=== PATIENT | female | born 1960 | race American Indian/Alaskan Native ===

== ENCOUNTER 2017-05-25 08:39 | Outpatient (CLI) | payer BC ==
--- NOTE | 2017-05-25 11:02 | Mammography Report ---
BILATERAL DIGITAL SCREENING MAMMOGRAM with CAD: 05/25/17 08:39:00 CLINICAL: Routine screening.History of breast cancer in her mother at 89 years of age. Previous right benign biopsy. COMPARISON:05/07/16 FINDINGS: There are scattered areas of fibroglandular density.Right upper outer biopsy clip. No mass, architectural distortion or suspicious calcifications. IMPRESSION: No mammographic evidence of malignancy. BI-RADS CATEGORY: 2 -- Benign RECOMMENDATION: Routine mammographic screening in one year. COMMENT: Patient follow-up letters are generated by our [employer] application.
== END 2017-05-25 08:40 | disposition home or self-care (01) ==
LOC: MAMMO 08:39
PROVIDERS: ATTEND Internal Medicine
DX: Z12.31 Encounter for screening mammogram for malignant neoplasm of breast (principal); Z80.3 Family history of malignant neoplasm of breast
CPT/HCPCS: 77067; G0202

== ENCOUNTER 2018-06-03 10:06 | Outpatient (CLI) | payer BC ==
--- NOTE | 2018-06-03 15:18 | Mammography Report ---
BILATERAL DIGITAL SCREENING MAMMOGRAM with CAD: 06/03/18 10:06:00 CLINICAL: Routine screening.History of breast cancer in her mother in her 90s. COMPARISON:05/25/17 FINDINGS: There are scattered areas of fibroglandular density.A right upper outer biopsy clip. No new mass, architectural distortion or suspicious calcifications. IMPRESSION: No mammographic evidence of malignancy. BI-RADS CATEGORY: 2 -- Benign RECOMMENDATION: Routine mammographic screening in one year. COMMENT: Patient follow-up letters are generated by our [employer] application.
== END 2018-06-03 10:07 | disposition home or self-care (01) ==
LOC: MAMMO 10:06
PROVIDERS: ATTEND Internal Medicine
DX: Z12.31 Encounter for screening mammogram for malignant neoplasm of breast (principal)
CPT/HCPCS: 77067

== ENCOUNTER 2019-06-24 10:42 | Outpatient (CLI) | payer BC ==
--- NOTE | 2019-06-27 10:46 | Mammography Report ---
DIGITAL SCREENING MAMMOGRAM WITH CAD, 06/24/2019 INDICATION: Routine screening mammography. TECHNIQUE: Digital bilateral 2D mammography was obtained in the craniocaudal and mediolateral obliq ue projections. This examination was interpreted with the benefit of Computer-Aided Detection analysi s. COMPARISON: 06/03/2018 and annual mammograms going back to 04/25/2015 FINDINGS: Breast Density: There are scattered areas of fibroglandular density. There is no evidence of dominant mass, suspicious calcifications or architectural distortion in the l eft breast. A right upper parenchymal asymmetry on the MLO view requires additional imaging. A right outer biopsy clip with a stable density at the clip. IMPRESSION: Right asymmetry requiring additional imaging. Recommend recall for right lateral, exagger ated CC and spot compression MLO views and right breast ultrasound if needed. Follow up recommendation: Special View: Spot Category 0: Incomplete. Needs additional imaging evaluation and/or prior mammograms for comparison. A "normal" or negative report should not discourage follow up or biopsy of a clinically significant f inding. A written summary of these findings will be mailed to the patient. The patient will be entered into a mammography reporting system which will generate a reminder letter for the patient's next appointmen t at the appropriate interval. The [employer] recommends yearly mammograms starting at age 40 and continuing as l mariam as a woman is in good health. Breast MRI is recommended for women with an approximate 20-25% or greater lifetime risk of breast cancer, including women with a strong family history of breast or ova yovany cancer or who have been treated for Hodgkin's disease. Signer Name: Matt Frank MD Signed: 06/27/2019 10:41 AM Workstation Name: [id number]
== END 2019-06-24 10:43 | disposition home or self-care (01) ==
LOC: MAMMO 10:42
PROVIDERS: ATTEND Internal Medicine
DX: Z12.31 Encounter for screening mammogram for malignant neoplasm of breast (principal)
CPT/HCPCS: 77067

== ENCOUNTER 2019-07-06 10:44 | Outpatient (CLI) | payer BC ==
--- NOTE | 2019-07-06 15:08 | Mammography Report ---
DIGITAL DIAGNOSTIC MAMMOGRAM WITH CAD, -- 07/06/2019 INDICATION: Recalled to evaluate asymmetry at screening mammogram. TECHNIQUE: Digital right mammographic imaging was performed. Spot compression views were obtained. This examination was interpreted with the benefit of Computer-aided Detection analysis. COMPARISON: 06/24/2019 FINDINGS: Breast Density: The breast is heterogeneously dense, which may obscure small masses. Additional right mammographic views were performed and are negative. Satisfactory effacement of asymm etry on spot images. IMPRESSION: No mammographic evidence of malignancy. Follow up recommendation: Routine yearly BI-RADS Category 2: Benign. A "normal" or negative report should not discourage follow up or biopsy of a clinically significant f inding. A written summary of these findings will be mailed to the patient. The patient will be entered into a mammography reporting system which will generate a reminder letter for the patient's next appointmen t at the appropriate interval. According to the [employer], yearly mammograms are recommended starting at age 40 and continuing as long as a woman is in good health. Breast MRI is recommended for women with an venkat roximately 20-25% or greater lifetime risk of breast cancer, including women with a strong family his tory of breast or ovarian cancer and women who have been treated for Hodgkin's disease. Signer Name: Matt Frank MD Signed: 07/06/2019 3:04 PM Workstation Name: [id number]
== END 2019-07-06 10:45 | disposition home or self-care (01) ==
LOC: MAMMO 10:44
PROVIDERS: ATTEND Internal Medicine
DX: R92.8 Other abnormal and inconclusive findings on diagnostic imaging of breast (principal)

== ENCOUNTER 2020-08-03 10:56 | Outpatient (CLI) | payer BC ==
--- NOTE | 2020-08-03 16:55 | Mammography Report ---
DIGITAL SCREENING MAMMOGRAM WITH CAD, 08/03/2020 CLINICAL INFORMATION / INDICATION: Routine screening mammography. TECHNIQUE: Digital bilateral 2D mammography was obtained in the craniocaudal and mediolateral obliqu e projections. This examination was interpreted with the benefit of Computer-Aided Detection analysis . COMPARISON: 06/24/2019 FINDINGS: Breast Density: The breasts are heterogeneously dense, which may obscure small masses. Right biopsy changes are again seen. In the upper outer right breast, posterior depth, approximately 7 8 cm from the nipple, a new rounded 12 mm density is seen. In the upper outer quadrant of the left breast, mid depth, approximately 7 cm from the nipple, a new 8 mm density is seen. IMPRESSION: Bilateral new focal asymmetric densities Follow up recommendation: Bilateral breast ultrasound BI-RADS Category 0: Incomplete. Needs additional imaging evaluation and/or prior mammograms for anel martines. A "normal" or negative report should not discourage follow up or biopsy of a clinically significant f inding. A written summary of these findings will be mailed to the patient. The patient will be entered into a mammography reporting system which will generate a reminder letter for the patient's next appointmen t at the appropriate interval. The [employer] recommends yearly mammograms starting at age 40 and continuing as l mariam as a woman is in good health. Breast MRI is recommended for women with an approximate 20-25% or greater lifetime risk of breast cancer, including women with a strong family history of breast or ova yovany cancer or who have been treated for Hodgkin's disease. Signer Name: Dalton Foley MD Signed: 08/03/2020 4:50 PM Workstation Name: [id number]
== END 2020-08-03 10:57 | disposition home or self-care (01) ==
LOC: MAMMO 10:56
PROVIDERS: ATTEND Internal Medicine
DX: Z12.31 Encounter for screening mammogram for malignant neoplasm of breast (principal)
CPT/HCPCS: 77067

== ENCOUNTER 2020-10-05 09:12 | Outpatient (CLI) | payer BC ==
--- NOTE | 2020-10-05 12:07 | Ultrasound Report ---
ULTRASOUND BREAST BILATERAL LIMITED, 10/05/2020 CLINICAL INFORMATION / INDICATION: Callback from abnormal bilateral mammogram. TECHNIQUE: Targeted ultrasound evaluation was performed of the area of interest. COMPARISON: Recent screening mammogram 08/03/2020 FINDINGS: Right breast: There is a 1.2 cm simple cyst in the 9:00 position, 8 cm from nipple. This correlates w ith mammographic abnormality. Incidental 4 mm cyst is also present in the upper outer quadrant. Addit ionally, there is an oval solid mass measuring 1.7 x 0.7 cm containing biopsy clip that correlates wi th benign mass noted mammographically, having been biopsied 2004. Left breast: There is an 18 mm oval simple cyst in the 2:00 position, 7 cm from the nipple. There is an adjacent smaller cyst measuring 6 mm in the 2:00 position, 7 cm from the nipple that does correlat e with mammographic abnormality. No solid masses of concern are noted within either breast. IMPRESSION: No sonographic evidence of malignancy. Bilateral simple cysts account for the abnormaliti es noted on recent screening mammogram. Follow up recommendation: Routine yearly BI-RADS Category 2: Benign. A normal or "negative" report should not preclude biopsy or follow-up of a clinically suspicious find ing. Signer Name: Stacy Mcdaniel MD Signed: 10/05/2020 12:03 PM Workstation Name: [id number]
== END 2020-10-05 09:13 | disposition home or self-care (01) ==
LOC: US 09:12
DX: N60.01 Solitary cyst of right breast (principal); N60.02 Solitary cyst of left breast; R92.8 Other abnormal and inconclusive findings on diagnostic imaging of breast

== ENCOUNTER 2021-08-09 10:14 | Outpatient (CLI) | payer BC | END 2021-08-09 10:15 | disposition home or self-care (01) | LOC: MAMMO 10:14 | PROVIDERS: ATTEND Internal Medicine | DX: Z12.31 Encounter for screening mammogram for malignant neoplasm of breast (principal) | CPT/HCPCS: 77067 ==